=== PATIENT | female | born 1985 | race Caucasian/White ===

== ENCOUNTER 2019-03-13 20:41 | Inpatient (IN) | payer BC ==
[2019-03-13 22:25] LABS: Hematocrit 35.9 % (30.3-42.9); Mean Corpuscular HGB Conc 33 % (30-34); Mean Corpuscular Volume 81 fl (79-97); Platelet Count 217 K/mm3 (140-440); Red Blood Count 4.44 M/mm3 (3.65-5.03); Red Cell Distribution Width 15.1 % (13.2-15.2)
[2019-03-13] MEDS ORDERED: TERBUTALINE 1 MG/1 ML INJ IVP PRN (22:28)
[2019-03-13] MEDS ORDERED: ePHEDrine SULFATE 50 MG/1 ML INJ IV PRN (22:28)
[2019-03-13] MEDS ORDERED: LIDOCAINE (2%) 20 MG/1 ML VIAL 20 ML MDV INFILTRATI ONE (22:28)
[2019-03-13] MEDS ORDERED: fentaNYL 100 MCG/2 ML INJ IV PRN (22:28)
[2019-03-13] MEDS ORDERED: MINERAL OIL 30 ML ORAL LIQD PO PRN (22:28)
[2019-03-13] MEDS ORDERED: BUTORPHANOL 2 MG/1 ML INJ IV PRN (22:28)
[2019-03-13] MEDS ORDERED: DINOPROSTONE 10 MG VAG SUPP VG ONE (22:28)
[2019-03-13] MEDS ORDERED: TERBUTALINE 1 MG/1 ML INJ SUB-Q PRN (22:28)
[2019-03-13] MEDS ORDERED: OXYTOCIN DRIP 30 UNITS/500 ML BAG IV SCH (23:00)
[2019-03-13] MEDS ORDERED: OXYTOCIN 20 UNIT/1000ML DRIP 20 UNITS/1,000 ML BAG IV SCH (23:00)
[2019-03-13] MEDS: LACTATED RINGERS 1,000 ML IV SCH (23:07)
--- NOTE | 2019-03-14 00:44 | History and Physical Report ---
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 Her has been complicated by late entry to care. She presents to [facility] for IOL for post-date . She reports + FM. Denies any VB or LOF. Labs: B+, antibody negative; PAP normal; rubella immune; urine culture negative; HBsAg negative; HIV negative; platelets 228k; GC/Chlamydia negative; MSAFP/Multiple markers negative; 1 hr Gtt 114; VDRL negative; GBS negative. Past History Past Medical History: no pertinent history Past Surgical History: other (Right breast cyst drainage) Family/Genetic History: diabetes (MGM- type II) Social history: no significant social history, single, lives with family, full code. denies: smoking, alcohol abuse, prescription drug abuse, IV drug use - Obstetrical History Expected Date of Delivery: 03/07/19 Actual Gestation: 41 Week(s) 0 Day(s) : 1 Para: 0 Hx # Term Pregnancies: 0 Number of Pregnancies: 0 Spontaneous Abortions: 0 Induced : 0 Number of Living Children: 0 Medications and Allergies Allergies Allergy/AdvReac Type Severity Reaction Status Date / Time No Known Allergies Allergy Unverified 03/13/19 21:28 Home Medications Medication Instructions Recorded Confirmed Last Taken Type No Known Home Medications [No 03/13/19 03/13/19 Unknown History Reported Home Medications] Active Meds: Active Medications Butorphanol Tartrate (Stadol) 2 mg IV Q2H PRN PRN Reason: Pain , Severe (7-10) Ephedrine Sulfate (Ephedrine Sulfate) 10 mg IV Q2M PRN PRN Reason: Hypotension Fentanyl (Sublimaze) 100 mcg IV Q2H PRN PRN Reason: Labor Pain Oxytocin/Sodium Chloride (Pitocin/Ns 20 Unit/1000ml Drip) 20 units in 1,000 mls @ 125 mls/hr IV DIRECT [facility] Oxytocin/Sodium Chloride (Pitocin/Ns 30 Unit/500ml) 30 units in 500 mls @ 1 mls/hr IV TITR [place]; Protocol Oxytocin/Sodium Chloride (Pitocin/Ns 30 Unit/500ml) 30 units in 500 mls @ 2 mls/hr IV TITR [place]; Protocol Lactated Ringer's (Lactated Ringers) 1,000 mls @ 125 mls/hr IV DIRECT [facility] Last Admin: 03/13/19 23:07 Dose: 125 mls/hr Documented by: Mineral Oil (Mineral Oil) 30 ml PO QHS PRN PRN Reason: Constipation Terbutaline Sulfate (Brethine) 0.25 mg SUB-Q ONCE PRN PRN Reason: Hyperstimulation/Hypertonicity Terbutaline Sulfate (Brethine) 0.25 mg IVP ONCE PRN PRN Reason: Hyperstimulation/Hypertonicity Review of Systems All systems: negative - Vital Signs Vital signs: Vital Signs Temp Pulse Resp BP Pulse Ox 98.0 F 94 H 18 119/72 99 03/13/19 21:42 03/13/19 21:42 03/13/19 21:42 03/13/19 21:42 03/13/19 21:42 Temp Pulse Resp BP Pulse Ox 98.0 F 89 18 105/63 98 03/13/19 21:42 03/14/19 00:35 03/13/19 21:42 03/14/19 00:15 03/14/19 00:35 - Physical Exam Breasts: Positive: deferred Cardiovascular: Regular rate Lungs: Positive: Normal air movement Abdomen: Positive: other (gravid) Uterus: Positive: enlarged (S=D) Extremities: Positive: normal Deep Tendon Reflex Grade: Normal +2 - Obstetrical FHR: category 1 Uterine Contraction Monitor Mode: External Cervical Dilatation: 1 Cervical Effacement Percentage: 50 station: -2 Uterine Contraction Pattern: Irregular Uterine Tone Measurement Phase: Resting Uterine Contraction Intensity: Mild Results Result Diagrams: 03/13/19 22:05 Abnormal lab results 03/13/19 Range/Units 22:05 MCH 27 L (28-32) pg All other labs normal. Assessment and Plan - Patient Problems (1) Post-dates Current Visit: Yes Status: Acute Qualifiers: Post-term type: 40-42 weeks gestation Qualified Code(s): O48.0 - Post-term Plan to address problem: Admit to L & D Cervidil induction x 12 hrs as tolerated Pain meds as desired Anticipate (2) Late care affecting Current Visit: Yes Status: Acute (3) Late care Current Visit: Yes Status: Acute
--- NOTE | 2019-03-14 12:12 | Progress Note ---
Assessment and Plan A: IUP @ 41 Weeks Category I Tracing GBS Negative P: Cervidil Removed Start Pitocin Augmentation IV Pain Control Subjective - Subjective Date of service: 03/14/19 Patient reports: contractions (Requesting Pain Medication) Objective - Vital Signs Vital Signs: Vital Signs - 12hr 03/14/19 03/14/19 03/14/19 00:10 00:15 00:20 Temperature Pulse Rate 72 77 75 Respiratory Rate Blood Pressure 105/63 Blood Pressure [Left] O2 Sat by Pulse 98 98 98 Oximetry 03/14/19 03/14/19 03/14/19 00:25 00:30 00:35 Temperature Pulse Rate 72 85 89 Respiratory Rate Blood Pressure Blood Pressure [Left] O2 Sat by Pulse 98 98 98 Oximetry 03/14/19 03/14/19 03/14/19 00:40 00:45 00:50 Temperature Pulse Rate 62 65 70 Respiratory Rate Blood Pressure Blood Pressure [Left] O2 Sat by Pulse 98 98 98 Oximetry 03/14/19 03/14/19 03/14/19 00:55 01:00 01:05 Temperature Pulse Rate 70 66 67 Respiratory Rate Blood Pressure Blood Pressure [Left] O2 Sat by Pulse 98 98 99 Oximetry 03/14/19 03/14/19 03/14/19 01:10 01:15 01:20 Temperature Pulse Rate 75 70 67 Respiratory Rate Blood Pressure Blood Pressure [Left] O2 Sat by Pulse 98 98 98 Oximetry 03/14/19 03/14/19 03/14/19 01:25 01:30 01:35 Temperature Pulse Rate 76 67 62 Respiratory Rate Blood Pressure Blood Pressure [Left] O2 Sat by Pulse 98 99 99 Oximetry 03/14/19 03/14/19 03/14/19 01:39 01:40 01:45 Temperature Pulse Rate 67 59 L 59 L Respiratory Rate Blood Pressure 109/65 Blood Pressure [Left] O2 Sat by Pulse 99 99 Oximetry 03/14/19 03/14/19 03/14/19 01:50 01:55 02:00 Temperature Pulse Rate 61 66 63 Respiratory Rate Blood Pressure Blood Pressure [Left] O2 Sat by Pulse 99 99 99 Oximetry 03/14/19 03/14/19 03/14/19 02:05 02:10 02:15 Temperature Pulse Rate 71 64 70 Respiratory Rate Blood Pressure Blood Pressure [Left] O2 Sat by Pulse 98 99 99 Oximetry 03/14/19 03/14/19 03/14/19 02:20 02:25 02:30 Temperature Pulse Rate 70 74 68 Respiratory Rate Blood Pressure Blood Pressure [Left] O2 Sat by Pulse 98 98 99 Oximetry 03/14/19 03/14/19 03/14/19 02:35 02:39 02:40 Temperature Pulse Rate 76 65 71 Respiratory Rate Blood Pressure 104/56 Blood Pressure [Left] O2 Sat by Pulse 98 99 Oximetry 03/14/19 03/14/19 03/14/19 02:45 02:50 02:55 Temperature Pulse Rate 69 81 73 Respiratory Rate Blood Pressure Blood Pressure [Left] O2 Sat by Pulse 99 99 98 Oximetry 03/14/19 03/14/19 03/14/19 03:00 03:05 03:10 Temperature Pulse Rate 71 70 71 Respiratory Rate Blood Pressure Blood Pressure [Left] O2 Sat by Pulse 99 99 98 Oximetry 03/14/19 03/14/19 03/14/19 03:15 03:20 03:25 Temperature Pulse Rate 89 91 H 96 H Respiratory Rate Blood Pressure Blood Pressure [Left] O2 Sat by Pulse 98 98 98 Oximetry 03/14/19 03/14/19 03/14/19 03:30 03:35 03:39 Temperature Pulse Rate 79 84 77 Respiratory Rate Blood Pressure 108/67 Blood Pressure [Left] O2 Sat by Pulse 97 98 Oximetry 03/14/19 03/14/19 03/14/19 03:40 03:45 03:50 Temperature Pulse Rate 74 82 97 H Respiratory Rate Blood Pressure Blood Pressure [Left] O2 Sat by Pulse 99 98 98 Oximetry 03/14/19 03/14/19 03/14/19 03:55 04:00 04:05 Temperature Pulse Rate 83 73 73 Respiratory Rate Blood Pressure Blood Pressure [Left] O2 Sat by Pulse 98 98 98 Oximetry 03/14/19 03/14/19 03/14/19 04:10 04:15 04:20 Temperature Pulse Rate 76 94 H 92 H Respiratory Rate Blood Pressure Blood Pressure [Left] O2 Sat by Pulse 99 98 98 Oximetry 03/14/19 03/14/19 03/14/19 04:25 04:30 04:35 Temperature Pulse Rate 89 89 78 Respiratory Rate Blood Pressure Blood Pressure [Left] O2 Sat by Pulse 99 98 98 Oximetry 03/14/19 03/14/19 03/14/19 04:39 04:40 04:45 Temperature Pulse Rate 68 84 69 Respiratory Rate Blood Pressure 117/66 Blood Pressure [Left] O2 Sat by Pulse 98 98 Oximetry 03/14/19 03/14/19 03/14/19 04:50 04:55 05:00 Temperature Pulse Rate 70 85 74 Respiratory Rate Blood Pressure Blood Pressure [Left] O2 Sat by Pulse 98 98 98 Oximetry 03/14/19 03/14/19 03/14/19 05:05 05:10 05:15 Temperature Pulse Rate 78 92 H 73 Respiratory Rate Blood Pressure Blood Pressure [Left] O2 Sat by Pulse 98 99 98 Oximetry 03/14/19 03/14/19 03/14/19 05:20 05:25 05:30 Temperature Pulse Rate 77 72 74 Respiratory Rate Blood Pressure Blood Pressure [Left] O2 Sat by Pulse 98 98 99 Oximetry 03/14/19 03/14/19 03/14/19 05:35 05:39 05:40 Temperature Pulse Rate 76 68 70 Respiratory Rate Blood Pressure 109/61 Blood Pressure [Left] O2 Sat by Pulse 99 99 Oximetry 03/14/19 03/14/19 03/14/19 05:45 05:50 05:55 Temperature Pulse Rate 72 65 69 Respiratory Rate Blood Pressure Blood Pressure [Left] O2 Sat by Pulse 99 99 99 Oximetry 03/14/19 03/14/19 03/14/19 06:00 06:05 06:10 Temperature Pulse Rate 70 70 78 Respiratory Rate Blood Pressure Blood Pressure [Left] O2 Sat by Pulse 99 99 100 Oximetry 03/14/19 03/14/19 03/14/19 06:15 06:20 06:25 Temperature Pulse Rate 82 85 76 Respiratory Rate Blood Pressure Blood Pressure [Left] O2 Sat by Pulse 98 99 99 Oximetry 03/14/19 03/14/19 03/14/19 06:30 06:35 06:39 Temperature Pulse Rate 71 81 71 Respiratory Rate Blood Pressure 113/67 Blood Pressure [Left] O2 Sat by Pulse 98 98 Oximetry 03/14/19 03/14/19 03/14/19 06:40 06:45 06:50 Temperature Pulse Rate 80 71 72 Respiratory Rate Blood Pressure Blood Pressure [Left] O2 Sat by Pulse 99 97 98 Oximetry 03/14/19 03/14/19 03/14/19 06:55 07:00 07:05 Temperature Pulse Rate 77 74 65 Respiratory Rate Blood Pressure Blood Pressure [Left] O2 Sat by Pulse 98 98 99 Oximetry 03/14/19 03/14/19 03/14/19 07:10 07:15 07:20 Temperature Pulse Rate 65 61 63 Respiratory Rate Blood Pressure Blood Pressure [Left] O2 Sat by Pulse 97 98 98 Oximetry 03/14/19 03/14/19 03/14/19 07:25 07:30 07:35 Temperature Pulse Rate 66 76 80 Respiratory Rate Blood Pressure Blood Pressure [Left] O2 Sat by Pulse 97 98 98 Oximetry 03/14/19 03/14/19 03/14/19 07:40 07:45 07:50 Temperature Pulse Rate 71 62 80 Respiratory Rate Blood Pressure 110/68 Blood Pressure [Left] O2 Sat by Pulse 99 99 99 Oximetry 03/14/19 03/14/19 03/14/19 07:55 07:57 07:59 Temperature 98.8 F Pulse Rate 84 76 72 Respiratory 16 Rate Blood Pressure 108/60 Blood Pressure 108/60 [Left] O2 Sat by Pulse 99 98 Oximetry 03/14/19 03/14/19 03/14/19 08:00 08:05 08:10 Temperature Pulse Rate 69 83 89 Respiratory Rate Blood Pressure Blood Pressure [Left] O2 Sat by Pulse 98 99 97 Oximetry 03/14/19 03/14/19 03/14/19 08:15 08:29 08:34 Temperature Pulse Rate 90 84 84 Respiratory Rate Blood Pressure Blood Pressure [Left] O2 Sat by Pulse 98 98 98 Oximetry 03/14/19 03/14/19 03/14/19 08:39 08:44 08:49 Temperature Pulse Rate 68 64 82 Respiratory Rate Blood Pressure Blood Pressure [Left] O2 Sat by Pulse 98 99 99 Oximetry 03/14/19 03/14/19 03/14/19 08:54 08:59 09:04 Temperature Pulse Rate 79 93 H 98 H Respiratory Rate Blood Pressure Blood Pressure [Left] O2 Sat by Pulse 99 99 99 Oximetry 03/14/19 03/14/19 03/14/19 09:09 09:14 09:19 Temperature Pulse Rate 85 66 86 Respiratory Rate Blood Pressure Blood Pressure [Left] O2 Sat by Pulse 98 98 99 Oximetry 03/14/19 03/14/19 03/14/19 09:24 09:29 09:34 Temperature Pulse Rate 76 74 71 Respiratory Rate Blood Pressure Blood Pressure [Left] O2 Sat by Pulse 98 97 98 Oximetry 03/14/19 03/14/19 03/14/19 09:39 09:44 09:49 Temperature Pulse Rate 71 72 85 Respiratory Rate Blood Pressure Blood Pressure [Left] O2 Sat by Pulse 92 91 99 Oximetry 03/14/19 03/14/19 03/14/19 09:53 09:54 09:59 Temperature Pulse Rate 83 72 71 Respiratory Rate Blood Pressure Blood Pressure [Left] O2 Sat by Pulse 92 100 99 Oximetry 03/14/19 03/14/19 03/14/19 10:04 10:09 10:14 Temperature Pulse Rate 71 71 69 Respiratory Rate Blood Pressure Blood Pressure [Left] O2 Sat by Pulse 98 98 99 Oximetry 03/14/19 03/14/19 03/14/19 10:19 10:24 10:29 Temperature Pulse Rate 86 62 67 Respiratory Rate Blood Pressure Blood Pressure [Left] O2 Sat by Pulse 100 99 98 Oximetry 03/14/19 03/14/19 03/14/19 10:34 10:39 10:44 Temperature Pulse Rate 81 78 80 Respiratory Rate Blood Pressure Blood Pressure [Left] O2 Sat by Pulse 99 99 99 Oximetry 03/14/19 03/14/19 03/14/19 10:49 10:54 10:59 Temperature Pulse Rate 79 76 91 H Respiratory Rate Blood Pressure Blood Pressure [Left] O2 Sat by Pulse 99 98 99 Oximetry 03/14/19 03/14/19 03/14/19 11:04 11:09 11:14 Temperature Pulse Rate 72 86 74 Respiratory Rate Blood Pressure Blood Pressure [Left] O2 Sat by Pulse 98 99 98 Oximetry 03/14/19 03/14/19 11:19 11:24 Temperature Pulse Rate 91 H 89 Respiratory Rate Blood Pressure Blood Pressure [Left] O2 Sat by Pulse 98 99 Oximetry - Exam Breasts: normal Cardiovascular: Regular rate Lungs: Clear to auscultation, Normal air movement Abdomen: Present: normal appearance, soft, normal bowel sounds Uterus: Present: normal, firm, fundal height above umbilicus FHR: category 1 Uterine Contraction Monitor Mode: External Cervical Dilatation: 3 (Vtx with compound presentation) Cervical Effacement Percentage: 80 station: -2 Uterine Contraction Pattern: Irregular Uterine Tone Measurement Phase: Resting Uterine Contraction Intensity: Mild Extremities: normal - Labs Labs: Abnormal Labs 12/03/19 22:05 MCH 27 L Laboratory Results - last 24 hr 03/13/19 03/13/19 03/13/19 22:05 22:05 22:05 WBC 9.6 RBC 4.44 Hgb 12.0 Hct 35.9 MCV 81 MCH 27 L MCHC 33 RDW 15.1 Plt Count 217 Syphilis IgG Antibody Non-reactive Blood Type B POSITIVE Antibody Screen Negative
[2019-03-14] MEDS: OXYTOCIN DRIP 30 UNITS/500 ML BAG IV SCH ×3 (12:44→17:56)
[2019-03-14] MEDS: LACTATED RINGERS 1,000 ML IV SCH ×3 (12:47→16:40)
[2019-03-14] MEDS ORDERED: ePHEDrine SULFATE 50 MG/1 ML INJ IV PRN (15:52)
[2019-03-14] MEDS ORDERED: NALOXONE 2 MG/2 ML INJ IV PRN (15:52)
[2019-03-14] MEDS ORDERED: fentaNYL-BUPIV 2 MCG/ML-0.125% 200 MCG/100 ML BAG EPIDURAL SCH (16:00)
[2019-03-14] MEDS ORDERED: LIDOCAINE MPF (2%) 20 MG/1 ML VIAL 5 ML ONE (16:18)
--- NOTE | 2019-03-14 16:52 | Anesthesia Consultation ---
Anesthesia Consult and Med Hx Date of service: 03/14/19 - Airway Anesthetic Teeth Evaluation: Good ROM Head & Neck: Adequate Mental/Hyoid Distance: Adequate Mallampati Class: Class II Intubation Access Assessment: Probably Good - Pulmonary Exam CTA: Yes - Cardiac Exam Cardiac Exam: RRR - Pre-Operative Health Status ASA Pre-Surgery Classification: ASA2 Proposed Anesthetic Plan: Epidural - Pulmonary Hx Smoking: No Hx Respiratory Symptoms: No - Cardiovascular System Hx Hypertension: No Hx Heart Attack/AMI: No - Central Nervous System Hx Neuromuscular Disorder: No CVA: No Hx Back Pain: No - Endocrine Hx Renal Disease: No Hx Liver Disease: No Hx Insulin Dependent Diabetes: No Hx Non-Insulin Dependent Diabetes: No Hx Thyroid Disease: No - Hematic Hx Anemia: No - Other Systems Hx Obesity: No - Additional Comments Anesthesia Medical History Comments: No prior epidurals. No hx coagulopathy or anticoagulants.
[2019-03-14] MEDS ORDERED: DEXMEDETOMIDINE 200 MCG/2 ML VIAL IV ONE (18:46)
[2019-03-14] MEDS ORDERED: BUPIVACAINE/PF (0.5%) 5 MG/1 ML 30 ML VIAL INFILTRATI ONE (18:47)
--- NOTE | 2019-03-14 18:56 | Progress Note ---
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 Emili Velasco MD Patient reports: contractions (Requesting Pain Medication) Objective - Vital Signs Vital Signs: Vital Signs - 12hr 03/14/19 03/14/19 03/14/19 06:55 07:00 07:05 Temperature Pulse Rate 77 74 65 Respiratory Rate Blood Pressure Blood Pressure [Left] O2 Sat by Pulse 98 98 99 Oximetry 03/14/19 03/14/19 03/14/19 07:10 07:15 07:20 Temperature Pulse Rate 65 61 63 Respiratory Rate Blood Pressure Blood Pressure [Left] O2 Sat by Pulse 97 98 98 Oximetry 03/14/19 03/14/19 03/14/19 07:25 07:30 07:35 Temperature Pulse Rate 66 76 80 Respiratory Rate Blood Pressure Blood Pressure [Left] O2 Sat by Pulse 97 98 98 Oximetry 03/14/19 03/14/19 03/14/19 07:40 07:45 07:50 Temperature Pulse Rate 71 62 80 Respiratory Rate Blood Pressure 110/68 Blood Pressure [Left] O2 Sat by Pulse 99 99 99 Oximetry 03/14/19 03/14/19 03/14/19 07:55 07:57 07:59 Temperature 98.8 F Pulse Rate 84 76 72 Respiratory 16 Rate Blood Pressure 108/60 Blood Pressure 108/60 [Left] O2 Sat by Pulse 99 98 Oximetry 03/14/19 03/14/19 03/14/19 08:00 08:05 08:10 Temperature Pulse Rate 69 83 89 Respiratory Rate Blood Pressure Blood Pressure [Left] O2 Sat by Pulse 98 99 97 Oximetry 03/14/19 03/14/19 03/14/19 08:15 08:29 08:34 Temperature Pulse Rate 90 84 84 Respiratory Rate Blood Pressure Blood Pressure [Left] O2 Sat by Pulse 98 98 98 Oximetry 03/14/19 03/14/19 03/14/19 08:39 08:44 08:49 Temperature Pulse Rate 68 64 82 Respiratory Rate Blood Pressure Blood Pressure [Left] O2 Sat by Pulse 98 99 99 Oximetry 03/14/19 03/14/19 03/14/19 08:54 08:59 09:04 Temperature Pulse Rate 79 93 H 98 H Respiratory Rate Blood Pressure Blood Pressure [Left] O2 Sat by Pulse 99 99 99 Oximetry 03/14/19 03/14/19 03/14/19 09:09 09:14 09:19 Temperature Pulse Rate 85 66 86 Respiratory Rate Blood Pressure Blood Pressure [Left] O2 Sat by Pulse 98 98 99 Oximetry 03/14/19 03/14/19 03/14/19 09:24 09:29 09:34 Temperature Pulse Rate 76 74 71 Respiratory Rate Blood Pressure Blood Pressure [Left] O2 Sat by Pulse 98 97 98 Oximetry 03/14/19 03/14/19 03/14/19 09:39 09:44 09:49 Temperature Pulse Rate 71 72 85 Respiratory Rate Blood Pressure Blood Pressure [Left] O2 Sat by Pulse 92 91 99 Oximetry 03/14/19 03/14/19 03/14/19 09:53 09:54 09:59 Temperature Pulse Rate 83 72 71 Respiratory Rate Blood Pressure Blood Pressure [Left] O2 Sat by Pulse 92 100 99 Oximetry 03/14/19 03/14/19 03/14/19 10:04 10:09 10:14 Temperature Pulse Rate 71 71 69 Respiratory Rate Blood Pressure Blood Pressure [Left] O2 Sat by Pulse 98 98 99 Oximetry 03/14/19 03/14/19 03/14/19 10:19 10:24 10:29 Temperature Pulse Rate 86 62 67 Respiratory Rate Blood Pressure Blood Pressure [Left] O2 Sat by Pulse 100 99 98 Oximetry 03/14/19 03/14/19 03/14/19 10:34 10:39 10:44 Temperature Pulse Rate 81 78 80 Respiratory Rate Blood Pressure Blood Pressure [Left] O2 Sat by Pulse 99 99 99 Oximetry 03/14/19 03/14/19 03/14/19 10:49 10:54 10:59 Temperature Pulse Rate 79 76 91 H Respiratory Rate Blood Pressure Blood Pressure [Left] O2 Sat by Pulse 99 98 99 Oximetry 03/14/19 03/14/19 03/14/19 11:04 11:09 11:14 Temperature Pulse Rate 72 86 74 Respiratory Rate Blood Pressure Blood Pressure [Left] O2 Sat by Pulse 98 99 98 Oximetry 03/14/19 03/14/19 03/14/19 11:19 11:24 12:44 Temperature Pulse Rate 91 H 89 73 Respiratory Rate Blood Pressure 109/61 Blood Pressure [Left] O2 Sat by Pulse 98 99 99 Oximetry 03/14/19 03/14/19 03/14/19 12:49 12:53 12:54 Temperature Pulse Rate 74 86 82 Respiratory Rate Blood Pressure Blood Pressure [Left] O2 Sat by Pulse 99 94 93 Oximetry 03/14/19 03/14/19 03/14/19 12:57 12:59 13:04 Temperature 98.7 F Pulse Rate 76 74 72 Respiratory 16 Rate Blood Pressure Blood Pressure [Left] O2 Sat by Pulse 98 96 97 Oximetry 03/14/19 03/14/19 03/14/19 13:09 13:14 13:19 Temperature Pulse Rate 74 82 70 Respiratory Rate Blood Pressure Blood Pressure [Left] O2 Sat by Pulse 97 97 98 Oximetry 03/14/19 03/14/19 03/14/19 13:24 13:29 13:41 Temperature Pulse Rate 86 78 85 Respiratory Rate Blood Pressure Blood Pressure [Left] O2 Sat by Pulse 99 99 98 Oximetry 03/14/19 03/14/19 03/14/19 13:46 13:51 13:56 Temperature Pulse Rate 73 71 78 Respiratory Rate Blood Pressure Blood Pressure [Left] O2 Sat by Pulse 99 99 100 Oximetry 03/14/19 03/14/19 03/14/19 14:01 14:06 14:11 Temperature Pulse Rate 74 76 89 Respiratory Rate Blood Pressure Blood Pressure [Left] O2 Sat by Pulse 99 99 99 Oximetry 03/14/19 03/14/19 03/14/19 14:16 14:21 14:24 Temperature Pulse Rate 77 71 91 H Respiratory Rate Blood Pressure Blood Pressure [Left] O2 Sat by Pulse 99 99 93 Oximetry 03/14/19 03/14/19 03/14/19 14:26 14:31 14:36 Temperature Pulse Rate 92 H 92 H 95 H Respiratory Rate Blood Pressure Blood Pressure [Left] O2 Sat by Pulse 97 97 97 Oximetry 03/14/19 03/14/19 03/14/19 14:41 14:46 14:51 Temperature Pulse Rate 84 84 103 H Respiratory Rate Blood Pressure Blood Pressure [Left] O2 Sat by Pulse 97 98 99 Oximetry 03/14/19 03/14/19 03/14/19 14:56 15:01 15:06 Temperature Pulse Rate 96 H 102 H 97 H Respiratory Rate Blood Pressure Blood Pressure [Left] O2 Sat by Pulse 99 99 97 Oximetry 03/14/19 03/14/19 03/14/19 15:11 15:16 15:21 Temperature Pulse Rate 93 H 93 H 92 H Respiratory Rate Blood Pressure Blood Pressure [Left] O2 Sat by Pulse 97 99 99 Oximetry 03/14/19 03/14/19 03/14/19 15:26 15:27 15:31 Temperature Pulse Rate 95 H 102 H 89 Respiratory Rate Blood Pressure Blood Pressure [Left] O2 Sat by Pulse 99 94 91 Oximetry 03/14/19 03/14/19 03/14/19 15:36 15:41 15:46 Temperature Pulse Rate 91 H 106 H 99 H Respiratory Rate Blood Pressure Blood Pressure [Left] O2 Sat by Pulse 92 93 98 Oximetry 03/14/19 03/14/19 03/14/19 15:51 15:55 15:56 Temperature 98 F Pulse Rate 88 51 L 99 H Respiratory 18 Rate Blood Pressure Blood Pressure 116/55 [Left] O2 Sat by Pulse 97 98 98 Oximetry 03/14/19 03/14/19 03/14/19 15:57 16:01 16:06 Temperature Pulse Rate 91 H 110 H 110 H Respiratory Rate Blood Pressure 116/55 Blood Pressure [Left] O2 Sat by Pulse 92 98 99 Oximetry 03/14/19 03/14/19 03/14/19 16:11 16:16 16:21 Temperature Pulse Rate 108 H 105 H 91 H Respiratory Rate Blood Pressure 115/57 Blood Pressure [Left] O2 Sat by Pulse 98 98 99 Oximetry 03/14/19 03/14/19 03/14/19 16:22 16:26 16:27 Temperature Pulse Rate 100 H 95 H 111 H Respiratory Rate Blood Pressure 116/62 108/56 Blood Pressure [Left] O2 Sat by Pulse 98 Oximetry 03/14/19 03/14/19 03/14/19 16:31 16:32 16:36 Temperature Pulse Rate 95 H 101 H 97 H Respiratory Rate Blood Pressure 116/63 Blood Pressure [Left] O2 Sat by Pulse 100 99 Oximetry 03/14/19 03/14/19 03/14/19 16:37 16:41 16:46 Temperature Pulse Rate 98 H 108 H 106 H Respiratory Rate Blood Pressure 116/62 108/62 Blood Pressure [Left] O2 Sat by Pulse 99 99 Oximetry 03/14/19 03/14/19 03/14/19 16:51 16:56 17:01 Temperature Pulse Rate 104 H 100 H 88 Respiratory Rate Blood Pressure 113/66 Blood Pressure [Left] O2 Sat by Pulse 99 99 99 Oximetry 03/14/19 03/14/19 03/14/19 17:06 17:11 17:16 Temperature Pulse Rate 83 88 94 H Respiratory Rate Blood Pressure 117/66 Blood Pressure [Left] O2 Sat by Pulse 99 99 99 Oximetry 03/14/19 03/14/19 03/14/19 17:21 17:26 17:31 Temperature Pulse Rate 80 88 90 Respiratory Rate Blood Pressure 121/69 Blood Pressure [Left] O2 Sat by Pulse 99 99 99 Oximetry 03/14/19 03/14/19 03/14/19 17:36 17:41 17:42 Temperature Pulse Rate 88 83 83 Respiratory Rate Blood Pressure 111/56 Blood Pressure [Left] O2 Sat by Pulse 99 99 Oximetry 03/14/19 03/14/19 03/14/19 17:46 17:51 17:56 Temperature Pulse Rate 84 87 90 Respiratory Rate Blood Pressure Blood Pressure [Left] O2 Sat by Pulse 99 99 99 Oximetry 03/14/19 03/14/19 03/14/19 17:57 18:01 18:06 Temperature Pulse Rate 88 85 113 H Respiratory Rate Blood Pressure 114/59 Blood Pressure [Left] O2 Sat by Pulse 99 99 Oximetry 03/14/19 03/14/19 03/14/19 18:11 18:16 18:21 Temperature Pulse Rate 82 83 91 H Respiratory Rate Blood Pressure 115/58 Blood Pressure [Left] O2 Sat by Pulse 99 99 99 Oximetry 03/14/19 03/14/19 03/14/19 18:26 18:27 18:29 Temperature Pulse Rate 88 98 H 103 H Respiratory Rate Blood Pressure 126/59 Blood Pressure [Left] O2 Sat by Pulse 99 88 Oximetry 03/14/19 03/14/19 03/14/19 18:31 18:34 18:36 Temperature Pulse Rate 99 H 119 H 97 H Respiratory Rate Blood Pressure Blood Pressure [Left] O2 Sat by Pulse 86 87 98 Oximetry 03/14/19 03/14/19 03/14/19 18:41 18:43 18:46 Temperature Pulse Rate 81 83 98 H Respiratory Rate Blood Pressure 114/59 Blood Pressure [Left] O2 Sat by Pulse 99 99 Oximetry 03/14/19 18:51 Temperature Pulse Rate 96 H Respiratory Rate Blood Pressure Blood Pressure [Left] O2 Sat by Pulse 99 Oximetry - Labs Labs: Abnormal Labs 03/13/19 22:05 MCH 27 L Laboratory Results - last 24 hr 03/13/19 03/13/19 03/13/19 22:05 22:05 22:05 WBC 9.6 RBC 4.44 Hgb 12.0 Hct 35.9 MCV 81 MCH 27 L MCHC 33 RDW 15.1 Plt Count 217 Syphilis IgG Antibody Non-reactive Blood Type B POSITIVE Antibody Screen Negative
[2019-03-14] MEDS ORDERED: FAMOTIDINE 20 MG/2 ML INJ IV SCH (18:59)
[2019-03-14] MEDS ORDERED: METOCLOPRAMIDE 10 MG/2 ML INJ IV SCH (18:59)
[2019-03-14] MEDS ORDERED: BICITRA ORAL LIQD 30ML PO SCH (18:59)
[2019-03-14] MEDS ORDERED: ceFAZolin/Water 2 GM/20 ML 2 GM/20 ML SYRINGE IV NR (19:00)
[2019-03-14] MEDS ORDERED: LACTATED RINGERS 1,000 ML IV SCH (19:00)
[2019-03-14] MEDS ORDERED: OXYTOCIN 20 UNIT/1000ML DRIP 20 UNITS/1,000 ML BAG IV SCH ×2 (19:00→21:00)
--- NOTE | 2019-03-14 19:07 | Anesthesia Day of Surgery ---
Anesthesia Day of Surgery - Day of Surgery Patient Examined: Yes Patient H&P Reviewed: Yes Patient is NPO: Yes
[2019-03-14] MEDS ORDERED: ONDANSETRON 4 MG/2 ML INJ ONE (19:29)
[2019-03-14] MEDS ORDERED: WATER FOR IRRIG STERILE 1,500 ML BOTTLE IR ONE (19:30)
[2019-03-14] MEDS ORDERED: SODIUM CHLORIDE 0.9% IRR 1,500 ML BOTTLE IR ONE (19:30)
[2019-03-14] MEDS ORDERED: PHENYLEPHRINE/NS 1,000 MCG/10 ML SYRINGE (OR USE) IV ONE (19:30)
[2019-03-14] MEDS ORDERED: OXYTOCIN 10 UNIT/1 ML INJ ONE (19:50)
[2019-03-14] MEDS ORDERED: KETOROLAC 30 MG/1 ML INJ ONE (19:50)
[2019-03-14] MEDS ORDERED: WITCH HAZEL/ GLYCERIN PAD TP PRN (20:28)
[2019-03-14] MEDS ORDERED: MORPHINE 4 MG/1 ML INJ IV PRN (20:28)
[2019-03-14] MEDS ORDERED: ACETAMINOPHEN 325 MG TAB PO PRN (20:28)
[2019-03-14] MEDS ORDERED: NALOXONE 0.4 MG/1 ML INJ IV PRN ×2 (20:28→20:39)
--- NOTE | 2019-03-14 20:37 | Procedure Note ---
OB Delivery Note - Section Preop diagnosis: other (compound presention) Postop diagnosis: same Narrative: Date of Surgery 03/14/2019 Preoperative Diagnosis: compound presentation, arrest of dilatation Postoperative Diagnosis: same Procedure: Primary Low-Transverse Section via Pfannenstiel Incision Surgeon: Dr. Connie Velasco Reversal Print Inspector: Scrub EBL 600ml Fluid: 1600 Urine:300ml Drains: [place] to [place] Findings: normal, uterus tubes and ovariesx2, Viable male, weight 3155gms, Patient was noted to be 7cm/70%/-3 with moderate caput and persistent compound presentation. The patient was taken to the OR and adequate epidural anesthesia verified. The patient was placed in the lateral decubitus position with a leftward tilt. She was prepped and drapped in a sterile fashion. A time out was verified. A pfannenstiel incision was made and taken down sharply to the underlying fascia. The fascia was incised in the midline and extended laterally bluntly. The abdomen was entered bluntly and the bladder blade inserted. The uterine incision was made sharply with the scalpel and extended laterally bluntly. The vertex was delivered atrauamtically, no nuchal cord. The remainder of the delivery was atraumatic. The cord was clamped and cut and the baby handed to waiting lead network engineer staff. Cord gasses and cord blood obtained. The placenta was then delivered manually, the uterus exteriorized and cleared of all clots and debris. The uterine incision was closed in two layers of 0-Vicryl. Excellent hemostasis noted. The abdomen was irrigated with warm normal saline. The uterus placed back in the abdomen. A second look at the uterine incision assured hemostasis. The peritoneum was closed with 3-0 Vicryl and the rectus muscles approximated with 3-0 Vicryl . The fascia closed with 0-Vicryl in a running fashion and the subcuticular structures closed with interrupted 0- Vicryl. The skin closed with josefina and a pressure dressing applied. Sponge, needle and instrument counts correctx2. Patient tolerated the procedure well. Mom and baby to PACU/Nursery in stable condition. Yon RODRIGUEZ
[2019-03-14] MEDS ORDERED: PROMETHAZINE 25 MG RECT SUPP PR PRN (20:39)
[2019-03-14] MEDS ORDERED: PROMETHAZINE 25 MG TAB PO PRN (20:39)
[2019-03-14] MEDS ORDERED: HYDROmorphone 1 MG/1 ML INJ IV PRN ×2 (20:39)
[2019-03-14] MEDS ORDERED: ONDANSETRON 4 MG/2 ML INJ IV PRN (20:39)
--- NOTE | 2019-03-14 20:42 | Post Anesthesia Evaluation ---
- Post Anesthesia Evaluation Patient Participated: Yes Airway Patent: Yes Stable Respiratory Function: Yes Nausea/Vomiting: No Temp > 96.8F: Yes Pain Manageable: Yes Adequeate Hydration: Yes Anesthesia Complications: No Block Receding Appropriately: Yes Patient on Ventilator: Yes
[2019-03-14] MEDS: KETOROLAC 30 MG/1 ML INJ IV PRN (23:10)
[2019-03-15] MEDS: oxyCODONE /ACETAMINOPHEN 5-325MG TAB PO PRN ×3 (03:27→23:06)
[2019-03-15] MEDS: LACTATED RINGERS 1,000 ML IV SCH (04:09)
[2019-03-15] MEDS: KETOROLAC 30 MG/1 ML INJ IV PRN (07:45)
[2019-03-15 08:51] LABS: Hematocrit 27.1 % (30.3-42.9)
--- NOTE | 2019-03-15 12:05 | Progress Note ---
Assessment and Plan A: POD#1 s/p Primary C/S Pain well controlled Stable P: Continue routine PP/PO orders Abdominal binder Anticipate discharge home 24-48 hrs Subjective - Subjective Date of service: 03/15/19 Principal diagnosis: POD#1 s/p Primary C/S Interval history: See H&P and operative note Patient reports: appetite normal, voiding normally, pain well controlled, flatus, ambulating normally, no bowel movement [place]: doing well, nursing well Objective - Vital Signs Latest vital signs: Vital Signs Temp Pulse Resp BP BP Pulse Ox 03/15/19 08:32 99.1 F 102 H 20 109/62 97 03/15/19 05:29 98.3 F 83 18 115/65 98 03/15/19 03:27 18 03/14/19 23:10 18 03/14/19 22:08 98.8 F 91 H 18 102/54 97 03/14/19 21:35 98.2 F 107 H 16 110/56 97 03/14/19 21:34 98.2 F 03/14/19 21:20 115 H 16 110/47 98 03/14/19 21:05 91 H 14 105/61 96 03/14/19 20:50 110 H 13 107/46 97 03/14/19 20:35 98.1 F 69 13 115/68 97 03/14/19 19:16 115 H 99 03/14/19 19:12 80 123/62 03/14/19 19:11 105 H 99 03/14/19 19:10 96 H 114/57 03/14/19 19:06 81 99 03/14/19 19:01 100 H 99 03/14/19 18:56 100 H 115/61 99 03/14/19 18:51 96 H 99 03/14/19 18:46 98 H 99 03/14/19 18:43 83 114/59 03/14/19 18:41 81 99 03/14/19 18:36 97 H 98 03/14/19 18:34 119 H 87 03/14/19 18:31 99 H 86 03/14/19 18:29 103 H 88 03/14/19 18:27 98 H 126/59 03/14/19 18:26 88 99 03/14/19 18:21 91 H 99 03/14/19 18:16 83 99 03/14/19 18:11 82 115/58 99 03/14/19 18:06 113 H 99 03/14/19 18:01 85 99 03/14/19 17:57 88 114/59 03/14/19 17:56 90 99 03/14/19 17:51 87 99 03/14/19 17:46 84 99 03/14/19 17:42 83 111/56 03/14/19 17:41 83 99 03/14/19 17:36 88 99 03/14/19 17:31 90 99 03/14/19 17:26 88 121/69 99 03/14/19 17:21 80 99 03/14/19 17:16 94 H 99 03/14/19 17:11 88 117/66 99 03/14/19 17:06 83 99 03/14/19 17:01 88 99 03/14/19 16:56 100 H 113/66 99 03/14/19 16:51 104 H 99 03/14/19 16:46 106 H 99 03/14/19 16:41 108 H 108/62 99 03/14/19 16:37 98 H 116/62 03/14/19 16:36 97 H 99 03/14/19 16:32 101 H 116/63 03/14/19 16:31 95 H 100 03/14/19 16:27 111 H 108/56 03/14/19 16:26 95 H 98 03/14/19 16:22 100 H 116/62 03/14/19 16:21 91 H 99 03/14/19 16:16 105 H 115/57 98 03/14/19 16:11 108 H 98 03/14/19 16:06 110 H 99 03/14/19 16:01 110 H 98 03/14/19 15:57 91 H 116/55 92 03/14/19 15:56 99 H 98 03/14/19 15:55 98 F 51 L 18 116/55 98 03/14/19 15:51 88 97 03/14/19 15:46 99 H 98 03/14/19 15:41 106 H 93 03/14/19 15:36 91 H 92 03/14/19 15:31 89 91 03/14/19 15:27 102 H 94 03/14/19 15:26 95 H 99 03/14/19 15:21 92 H 99 03/14/19 15:16 93 H 99 03/14/19 15:11 93 H 97 03/14/19 15:06 97 H 97 03/14/19 15:01 102 H 99 03/14/19 14:56 96 H 99 03/14/19 14:51 103 H 99 03/14/19 14:46 84 98 03/14/19 14:41 84 97 03/14/19 14:36 95 H 97 03/14/19 14:31 92 H 97 03/14/19 14:26 92 H 97 03/14/19 14:24 91 H 93 03/14/19 14:21 71 99 03/14/19 14:16 77 99 03/14/19 14:11 89 99 03/14/19 14:06 76 99 03/14/19 14:01 74 99 03/14/19 13:56 78 100 03/14/19 13:51 71 99 03/14/19 13:46 73 99 03/14/19 13:41 85 98 03/14/19 13:29 78 99 03/14/19 13:24 86 99 03/14/19 13:19 70 98 03/14/19 13:14 82 97 03/14/19 13:09 74 97 03/14/19 13:04 72 97 03/14/19 12:59 74 96 03/14/19 12:57 98.7 F 76 16 98 03/14/19 12:54 82 93 03/14/19 12:53 86 94 03/14/19 12:49 74 99 03/14/19 12:44 73 109/61 99 Intake and Output 03/14/19 03/15/19 03/15/19 23:59 07:59 15:59 Intake Total 2551.400 1000 Output Total 750 400 Balance 1801.400 600 Intake: IV 2551.400 1000 Lactated Ringers 1,000 ml 217.381 8468 @ 125 mls/hr IV DIRECT [facility] Rx#:[id number] PITOCin/NS 30 UNIT/500ML 18.067 30 units In 500 ml @ 1 MILLIUNITS/MIN 1 mls/hr IV TITR [facility] Rx#:[id number] Output: Urine 750 400 Indwelling Catheter 300 400 Other: Total, Output Amount 300 400 Estimated Blood Loss 600 - Exam Breasts: Present: normal Cardiovascular: Present: Regular rate, Normal S1, Normal S2, No murmurs Lungs: Present: Clear to auscultation, Normal air movement Abdomen: Present: normal appearance, soft, tenderness (As expected post-op), normal bowel sounds. Absent: distention Vulva: both: normal Uterus: Present: firm, fundal height at umbilicus Extremities: Present: normal Deep Tendon Reflex Grade: Normal +2 Incision: Present: normal, dry, intact, dressed (Presure dressing CDI) - Labs Labs: Abnormal lab results 03/15/19 Range/Units 08:11 Hgb 9.0 L D (10.1-14.3) gm/dl Hct 27.1 L D (30.3-42.9) %
[2019-03-15] MEDS: IBUPROFEN 800 MG TAB PO PRN ×2 (15:48→21:00)
[2019-03-15] MEDS: LANOLIN/ZINC/DIMETHICONE (LANSINOH) 7 GM TP PRN (21:08)
[2019-03-16] MEDS: IBUPROFEN 800 MG TAB PO PRN ×2 (03:28→20:19)
[2019-03-16] MEDS: FERROUS SULFATE 325 MG TAB PO SCH ×2 (09:58→22:06)
[2019-03-16] MEDS: oxyCODONE /ACETAMINOPHEN 5-325MG TAB PO PRN ×2 (10:35→23:13)
--- NOTE | 2019-03-16 12:38 | Discharge Summary ---
Providers - Providers Date of Admission: 03/13/19 20:41 Date of discharge: 03/17/19 Attending physician: CHUCK MUÑOZ MD Primary care physician: CHUCK MUÑOZ MD Hospitalization Reason for admission: induction of labor Delivery: Procedure: primary low transverse Episiotomy: none Laceration: none Incision: dry, intact (no drainage or bleeding noted) Other procedures: none complications: none Discharge diagnosis: other (S/P Primary C/S; Anemia) baby: male Hospital course: See admission H & P; OB operative summary and PP progress notes Condition at discharge: Stable Disposition: DC-01 TO HOME OR SELFCARE - Discharge Diagnoses (1) Late care Status: Acute (2) S/P primary low transverse Status: Acute Plan - Discharge Medications Prescriptions: Ferrous Sulfate [Feosol 325 MG tab] 325 mg PO BID 30 Days #60 tablet - Provider Discharge Summary Activity: routine, no sex for 6 weeks, no heavy lifting 4 weeks, no strenuous exercise Diet: other (Iron rich diet) Instructions: routine Additional instructions: [] Smoking cessation referral if applicable(refer to patient education folder for contact #) [] Refer to [facility]'s [facility] Booklet Call your doctor immediately for: * Fever > 100.5 * Heavy vaginal bleeding ( >1 pad per hour) * Severe persistent headache * Shortness of breath * Reddened, hot, painful area to leg or breast * Drainage or odor from incision. * Keep incision clean and dry at all times and follow doctor's instructions regarding bathing/showering - Follow up plan Follow up: CHUCK MUÑOZ MD [Primary Care Provider] - 7 Days
[2019-03-16] MEDS: KETOROLAC 30 MG/1 ML INJ IV PRN (15:41)
[2019-03-16] MEDS: MUPIROCIN 2% OINT 22 GM TP SCH (22:06)
[2019-03-17] MEDS: LANOLIN/ZINC/DIMETHICONE (LANSINOH) 7 GM TP PRN (03:36)
[2019-03-17 03:48] VITALS: BP 120/61
[2019-03-17] MEDS: IBUPROFEN 800 MG TAB PO PRN ×2 (05:17→10:57)
[2019-03-17] MEDS: MUPIROCIN 2% OINT 22 GM TP SCH (10:57)
[2019-03-17] MEDS: FERROUS SULFATE 325 MG TAB PO SCH (10:57)
[2019-03-17] MEDS: oxyCODONE /ACETAMINOPHEN 5-325MG TAB PO PRN (10:58)
== END 2019-03-17 12:30 | disposition home or self-care (01) | DRG 788 ==
LOC: LD 20:41 → OB 03-14 22:13
PROVIDERS: ADMIT Obstetrics & Gynecology; ATTEND Obstetrics & Gynecology
PROC: 10D00Z1 Extraction of Products of Conception, Low, Open Approach (ICD-10-PCS; principal; 2019-03-14)
DX: O48.0 Post-term pregnancy (principal); Z3A.41 41 weeks gestation of pregnancy; Z37.0 Single live birth; O32.6XX0 Maternal care for compound presentation, not applicable or unspecified; O99.02 Anemia complicating childbirth; D64.9 Anemia, unspecified; O62.0 Primary inadequate contractions
CPT/HCPCS: 36415; 59200; 85014; 85018; 85027; 86592; 86850; 86900; 86901; 88307; G0378; A6250; J0595; J0690; J1885; J2370; J2405; J2590; J2765; J3010; J3490; J7120